=== PATIENT | female | born 1995 | race Caucasian/White ===

== ENCOUNTER 2021-03-22 07:13 | Emergency (ER) | payer MEDICAID ==
[~2021-03-22] VITALS: Ht 160 cm; Wt 68.2 kg
[2021-03-22 07:17] VITALS: BP 120/76; Ht 160 cm; Wt 68.2 kg
[2021-03-22 07:37] LABS: BASOPHILS 1.7 % (0-2); EOSINOPHILS 1.9 % (0-7); HEMATOCRIT 29.3 % (36.0-48.0); HEMOGLOBIN 9.1 g/dL (12-16); LYMPHOCYTES 28.8 % (15-50); MCH 19.6 pg (26.0-34.0); MCHC 30.9 g/dL (31.0-37.0); MCV 63.5 fL (80.0-100.0); MEAN PLATELET VOLUME 8.2 fL (7.4-10.4); MONOCYTES 6.7 % (2-11); NEUTROPHILS 60.9 % (40-80); PLATELET COUNT 280 10x3/uL (130-400); RBC 4.62 10x6/uL (4.00-5.40); RDW 21.6 % (11.5-14.5); WBC 5.3 10x3/uL (4.8-10.8)
[2021-03-22 07:50] LABS: CALC OSMOLALITY 276 mosm/kg (275-300); CALCIUM 8.5 mg/dL (8.5-10.1); CARBON DIOXIDE 28.8 mmol/L (21.0-32.0); CHLORIDE - SERUM 106 mmol/L (98-107); CREATININE - SERUM 0.5 mg/dL (0.6-1.3); GLUCOSE 91 mg/dL (74-106); POTASSIUM - SERUM 3.6 mmol/L (3.5-5.1); SODIUM 140 mmol/L (136-145); UREA NITROGEN 7 mg/dL (7-18); eGFR NON AFRICAN AMERICAN > 90 mL/min (90-120)
[2021-03-22 07:56] LABS: ALBUMIN 4.1 g/dL (3.4-5.0); ALKALINE PHOSPHATASE 70 U/L (30-120); ALT (SGPT) 24 U/L (10-68); BILIRUBIN - TOTAL 0.36 mg/dL (0.2-1.3); LIPASE 81 U/L (73-393); PROTEIN - SERUM 7.6 g/dL (6.4-8.2)
[2021-03-22 08:54] LABS: HCG URINE NEGATIVE (NEGATIVE)
[2021-03-22 09:02] LABS: UDS - AMPHET POSITIVE QUAL (NEGATIVE); UDS - BARB NEGATIVE QUAL (NEGATIVE); UDS - BENZO NEGATIVE QUAL (NEGATIVE); UDS - COCAINE NEGATIVE QUAL (NEGATIVE); UDS - OPIATE POSITIVE QUAL (NEGATIVE); UDS - PCP NEGATIVE QUAL (NEGATIVE); UDS - THC POSITIVE QUAL (NEGATIVE)
[2021-03-22 09:10] LABS: BACTERIA FEW HPF (<MOD); BILIRUBIN NEGATIVE (NEGATIVE); KETONE NEGATIVE mg/dL (< 1+); NITRITE NEGATIVE (NEGATIVE); SQUAMOUS EPITHELIAL 3 HPF (0-4); UROBILINOGEN NORMAL mg/dL (< 2); WHITE CELLS - URINE 8 HPF (0-4)
== END 2021-03-22 11:47 | disposition home or self-care (01) ==
LOC: D.ER 07:13
PROVIDERS: Emergency Medicine
DX: R10.9 Unspecified abdominal pain (principal); F12.20 Cannabis dependence, uncomplicated